=== PATIENT | male | born 1960 | race Caucasian/White ===

== ENCOUNTER 2016-10-14 17:13 | Emergency (ER) | payer BC, OTHER ==
[~2016-10-14] VITALS: Ht 177.8 cm; Wt 80.7 kg
--- NOTE | 2016-10-14 17:22 | NUR ---
AAOX3, CAME TO ER C/O FEVER, DIARRHEA, BACK PAIN, POSTERIOR HEADACHE, WEAKNESS SINCE THISAM. TOOK ADVIL [employer]. RESP IS EVEN AND UNLABORED WITH NAD NOTED. ORAL FPJS=082.9. SKIN IS HOT TO TOUCH. PLACED ON HOSPITAL GOWN. DOROTEO NORIEGA AT BS FOR EVAL.
[2016-10-14] MEDS ORDERED: IV SET PRIMARY 1 EA INFUS.SET MC ONE (17:25)
[2016-10-14] MEDS ORDERED: SECONDARY IV SET 1 EA INFUS.SET MC ONE (17:25)
[2016-10-14] MEDS ORDERED: IV NS 0.9% 2,000 ML ONE (17:25)
[2016-10-14] MEDS ORDERED: IV NS 0.9% 500 ML IV ONE (17:25)
[2016-10-14] MEDS ORDERED: IV NS 0.9% 1,000 ML BAG IV ONE (17:30)
[2016-10-14] MEDS ORDERED: ACETAMINOPHEN ES 500 MG TABLET PO ONE (17:30)
--- NOTE | 2016-10-14 17:36 | NUR ---
DR FLOYD AT BS FOR EVAL.
[2016-10-14] MEDS ORDERED: NIAC-5 PO (17:37)
[2016-10-14] MEDS ORDERED: ACETAMINOPHEN ES 500 MG TABLET ONE (17:37)
[2016-10-14] MEDS ORDERED: ERGO50003 PO (17:37)
[2016-10-14] MEDS ORDERED: MIRT45TA5 PO (17:37)
[2016-10-14] MEDS ORDERED: DOLU50TA PO (17:37)
[2016-10-14] MEDS ORDERED: TENO300T2 PO (17:37)
[2016-10-14] MEDS ORDERED: NEVI400T4 PO (17:37)
[2016-10-14] MEDS ORDERED: CITA20TA11 PO (17:37)
[2016-10-14 17:42] LABS: BASOPHILS # (AUTO) 0.2 /CMM (0.0-0.2); BASOPHILS % (AUTO) 1.3 % (0.0-2.0); HEMATOCRIT 47 % (39-51); HEMOGLOBIN 16.1 g/dL (13.5-17.5); LYMPHOCYTES # (AUTO) 0.5 /CMM (0.8-4.8); LYMPHOCYTES % (AUTO) 3.7 % (20.0-44.0); MEAN CORPUSCULAR HEMOGLOBIN 32 PG (26.0-33.0); MEAN CORPUSCULAR HGB CONC 34 g/dl (31.0-36.0); MEAN CORPUSCULAR VOLUME 94 fL (80-96); MONOCYTES # (AUTO) 0.4 /CMM (0.1-1.30); MONOCYTES % (AUTO) 3.4 % (2.0-12.0); NEUTROPHILS # (AUTO) 11.8 /CMM (1.8-8.9); NEUTROPHILS % (AUTO) 91.6 % (43.0-81.0); PLATELET COUNT (AUTO) 176 /CMM (150-450); RDW COEFFICIENT OF VARIATION 11.7 (11.5-15.0); RED BLOOD CELL COUNT(AUTO) 4.98 MIL/uL (4.5-6.0); WHITE BLOOD COUNT (AUTO) 12.9 K/uL (4.3-11.0)
[2016-10-14 17:46] LABS: CALCIUM, SERUM 8.5 mg/dL (8.5-10.1); CREATININE 1.5 mg/dL (0.6-1.3)
--- NOTE | 2016-10-14 18:40 | NUR ---
DR FLOYD AND DOROTEO NORIEGA MADE AWARE ABOUT ORAL TEMP=99.5.
[2016-10-14] MEDS ORDERED: IV NS 0.9% 50 ML IV ONE (19:01)
--- NOTE | 2016-10-14 19:06 | NUR ---
DOROTEO NORIEGA AT BS FOR AN UPDATE AND RE-EVAL.
--- NOTE | 2016-10-14 19:06 | NUR ---
REPORT GIVEN TO ED, NIGHT NURSE FOR SOPHIA.
--- NOTE | 2016-10-14 19:38 | NUR ---
IV removed. Catheter intact and site benign. Pressure and 4x4 applied to site. No bleeding noted. Patient discharged to home in stable condition. Written and verbal after care instructions given. Patient verbalizes understanding of instruction. ambulatory with a steady gait
[2016-10-14 19:39] VITALS: BP 110/63
[2016-10-14 19:52] LABS: BAND % (MANUAL) 12 % (0.0-5.0); LYMPHOCYTES % (MANUAL) 4 % (16-48); MONOCYTES % (MANUAL) 6 % (0-11.0); NEUTROPHILS % (MANUAL) 78 (42-76)
== END 2016-10-14 19:40 | disposition home or self-care (01) ==
LOC: ER 17:14
DX: R50.9 Fever, unspecified (principal); R51 Headache; M54.5 Low back pain
CPT/HCPCS: 36415; 80048-TC; 83605-TC; 85025-TC; 87040-TC; A4216; A4606; J7030; J7040; Z7610